=== PATIENT | female | born 1950 | race Caucasian/White ===

== ENCOUNTER → 2016-10-03 | Outpatient (CLI) | payer MEDICARE, OTHER ==
[~2016-10-03] MED LIST: BISO5TAB PO; FEXO180T84 PO; HYDR-3812 PO; METF500T4 PO; OXYC-197 PO; PRD20T PO; THYR15TA PO
--- NOTE | 2016-10-03 10:25 | Diagnostic Imaging Report ---
INDICATION: Lower respiratory infection. EXAMINATION: PA and lateral chest. FINDINGS: The heart size and pulmonary vascularity are normal. The lungs are clear. There are no effusions or pneumothoraces. IMPRESSION: Negative chest. Dictated by: Dictated on workstation # [id number]
== END ==
LOC: RAD 08:17
PROVIDERS: ATTEND Internal Medicine
DX: J20.9 Acute bronchitis, unspecified (principal)
CPT/HCPCS: 71020

== ENCOUNTER → 2018-06-19 | Outpatient (CLI) | payer MEDICARE, OTHER ==
[~2018-06-19] MED LIST changes: +ACHD5005 PO; -HYDR-3812 PO; +METF-397 PO; -METF500T4 PO; -OXYC-197 PO; +OXYC1TAB87 PO
--- NOTE | 2018-06-19 13:12 | Diagnostic Imaging Report ---
PROCEDURE: MRI lumbar spine. TECHNIQUE: Multiplanar, multisequence MRI of the lumbar spine was performed without contrast. INDICATION: Low back pain, bilateral hip and buttock pain. COMPARISON: No previous for direct comparison. FINDINGS: The lumbar body heights are maintained. The alignment is anatomic. The marrow signal intensity is unremarkable. The conus is unremarkable. The nerves of the cauda equina revealed a normal pattern of dispersal. No paravertebral mass, hemorrhage, or fluid collection. T12-L1: Leftward eccentric posterolateral broad-based disc protrusion indents the left ventral thecal sac with only mild canal stenosis but does result in a mild degree of left-sided neuroforaminal stenosis. The right-sided foramen and bilateral lateral recesses are widely patent. L1-L2: Osteophyte disc material is anterior greater than posterior. Disease is mildly asymmetric to the left but no foraminal, recess, or canal stenosis. L2-L3: Degenerative changes to the disc, endplates, and posterior elements result in no stenosis. L3-L4: There are disc desiccation, loss of disc stature, disc bulge, and endplate osteophytes. The findings result in [id number] right and mild left foraminal stenosis. There is thickening of the ligamenta flava and some prominence of the dorsal epidural fat which in conjunction with disc bulge result in a moderate degree of canal stenosis. L4-L5: There is buckled thickened ligamenta flava, hypertrophic facet arthrosis, disc bulge, and endplate osteophytes. The constellation of findings result in a severe degree of trefoil-configured stenosis of the thecal sac with mild degrees of biforaminal stenosis. There is at least mild left greater than right lateral recess stenosis below this disc space level. L5-S1: Disc bulge mildly asymmetric to the left mildly narrows the left neuroforamen and the spinal canal and showed no significant stenosis. There is left greater than right mild degrees of lateral recess stenosis. IMPRESSION: 1. Degenerative changes to the discs, endplates, and posterior elements result in multilevel stenoses involving spinal canal, neuroforamina, and lateral recesses, listed level by level above, most significantly at the L4-L5 level. 2. Normal alignment. No acute bony abnormality. Dictated by: Dictated on workstation # [id number]
== END ==
LOC: RAD 10:10
PROVIDERS: ATTEND Internal Medicine
DX: M51.17 Intervertebral disc disorders with radiculopathy, lumbosacral region (principal); M48.07 Spinal stenosis, lumbosacral region; M25.78 Osteophyte, vertebrae
CPT/HCPCS: 72148

== ENCOUNTER 2018-08-02 13:30 | Outpatient (RCR) | payer MEDICARE, OTHER | END 2018-08-02 14:08 | disposition home or self-care (01) | PROVIDERS: ATTEND Internal Medicine Rheumatology | DX: M54.16 Radiculopathy, lumbar region (principal) ==

== ENCOUNTER 2019-04-26 19:08 | Emergency (ER) | payer MEDICARE, OTHER ==
[~2019-04-26] VITALS: Ht 162.6 cm; Wt 71.2 kg
[2019-04-26] MEDS ORDERED: RT-ALBUTEROL SULF 2.5 MG/3 ML PRE-MIX VIAL INH STA (20:05)
--- NOTE | 2019-04-26 20:16 | ED General ---
General Chief Complaint: Cough/Cold/Flu Symptoms Stated Complaint: FLU LIKE SYMPTOMS Nursing Triage Note: PT AMBULATE TO TRIAGE WITH C/O FLU LIKE SYMPTOMS. PT C/O COUGH, FEELING RUN DOWN, AND INCREASED WORK OF BREATHING. SYMPTOMS STARTED APPROX 7 DAYS AGO. Nursing Sepsis Screen: No Definite Risk Source of Information: Patient Exam Limitations: No Limitations History of Present Illness Date Seen by Provider: Apr 26, 2019 Time Seen by Provider: 19:11 Initial Comments This 68-year-old woman presents to the emergency room with complaints of one week of flulike symptoms including cough, dyspnea, wheezing, congestion, and chills. She is afebrile at present. She denies nausea, vomiting, or urinary symptoms. She has mild lower back ache. She denies any history of respiratory problems. She has some autoimmune disorders but is not on immunosuppressive medications at this time. Allergies and Home Medications Allergies Coded Allergies: celecoxib (Unverified Allergy, Unknown, 01/24/16) Home Medications Albuterol Sulfate 1 Puff Puff, 2 PUFF IH Q4H PRN for WHEEZING 1 PUFF = 90 MCG Prescribed by: YADIRA TOLLIVER on 04/26/192099 Bisoprolol Fumarate 5 Mg Tablet, 2.5 MG PO DAILY, (Reported) Metformin HCl 500 Mg Tablet, 250 MG PO DAILY, (Reported) Oxycodone HCl/Acetaminophen 1 Each Tablet, 1-2 EACH PO Q6H PRN for PAIN Prescribed by: KAM WAGNER on 11/08/15 0256 Prednisone 20 Mg Tab, 60 MG PO DAILY, (Reported) Thyroid,Pork 15 Mg Tablet, 15 MG PO DAILY, (Reported) Patient Home Medication List Home Medication List Reviewed: Yes Review of Systems Review of Systems Constitutional: see HPI EENTM: see HPI, other (watery erythematous eyes) Respiratory: see HPI Cardiovascular: no symptoms reported Gastrointestinal: no symptoms reported Genitourinary: no symptoms reported : No Musculoskeletal: see HPI Skin: other (scalp psoriasis) Psychiatric/Neurological: No Symptoms Reported Hematologic/Lymphatic: No Symptoms Reported Past Hngiadh-Phwlnh-Glpouu Hx Patient Social History Alcohol Use: Occasionally Uses Recreational Drug Use: No Smoking Status: Never a Smoker 2nd Hand Smoke Exposure: No Recent Foreign Travel: No Contact w/Someone Who Travel: No Recent Infectious Disease Expo: No Recent Hopitalizations: Yes (BACK SURGERY AT [facility]) Physical Abuse: No Sexual Abuse: No Mistreated: No Fear: No Seasonal Allergies Seasonal Allergies: No Past Medical History Surgeries: Yes (BACK SURGERY) Respiratory: No Cardiac: Yes Hypertension Neurological: No : No Genitourinary: No Gastrointestinal: No Musculoskeletal: Yes (SPINAL STENOSIS) Endocrine: Yes Hypothyroidsim HEENT: No Cancer: No Psychosocial: No Integumentary: Yes Psoriasis Blood Disorders: No Physical Exam Vital Signs Vital Signs - First Documented 04/26/19 04/26/19 19:39 19:45 Temp 36.7 Pulse 76 Resp 19 B/P (MAP) 161/97 (118) O2 Delivery Room Air O2 Flow Rate 96.00 Capillary Refill : Less Than 3 Seconds Height, Weight, BMI Height: '" Weight: lbs. oz. kg; 26.00 BMI Method: General Appearance: No Apparent Distress, WD/WN Eyes: Bilateral Eye Other (mild conjunctival irritation with watery eyes) HEENT: PERRL/EOMI, TMs Normal, Normal ENT Inspection, Pharyngeal Erythema Neck: Normal Inspection Respiratory: No Accessory Muscle Use, No Respiratory Distress, Wheezing Cardiovascular: Regular Rate, Rhythm, No Edema, No Murmur Extremity: Normal Inspection, No Pedal Edema Neurologic/Psychiatric: Alert, Oriented x3, No Motor/Sensory Deficits, Normal Mood/Affect, legal stenographer II-XII Norm as Tested Skin: Normal Color, Warm/Dry Progress/Results/Core Measures Suspected Sepsis Recent Fever Within 48 Hours: No Infection Criteria Present: None New/Unexplained Altered Menta: No Sepsis Screen: No Definite Risk SIRS Temperature: Pulse: 76 Respiratory Rate: 19 Blood Pressure 161 /97 Mean: 118 Results/Orders Micro Results Microbiology 04/26/19 Influenza Types A,B Antigen (JAVIER) - Final, Complete My Orders Orders - YADIRA SMITH MD Influenza A And B Antigens (04/26/19 19:11) Chest Pa/Lat (2 View) (04/26/19 20:05) Albuterol Pre-Mix Nebs (Rt) (Proventil (04/26/19 20:05) Svn Small Volume Nebulizer (04/26/19 20:05) Vital Signs/I&O 04/26/19 04/26/19 19:39 19:45 Temp 36.7 Pulse 76 Resp 19 B/P (MAP) 161/97 (118) O2 Delivery Room Air Room Air O2 Flow Rate 96.00 Capillary Refill : Less Than 3 Seconds Blood Pressure Mean: 118 POS Progress Note : Progress Note Influenza screen and chest x-ray were negative. A trial of nebulized albuterol did not significantly improve her symptoms. There was perhaps mild improvement in wheezing on repeat examination. Patient has successfully used steroids in the past. She has prednisone at home she can use if her symptoms worsen. Albuterol inhaler was also prescribed to use if symptoms worsen. Return precautions were discussed. Diagnostic Imaging Diagonstic Imaging: Xray Plain Films/CT/US/NM/MRI: chest Comments Chest x-ray viewed by me and report reviewed. See report below: NAME: ANGIE CANDELARIO [facility] REC#: [id number] PT STATUS: REG ER : 1950 PHYSICIAN: YADIRA SMITH MD ADMIT DATE: 04/26/19/ER Signed Date of Exam:04/26/19 CHEST PA/LAT (2 VIEW) EXAMINATION: PA and lateral chest at 8:18 PM INDICATION: Cough The heart size is within normal limits and stable when compared to 10/03/2016. The minimal scar formation in the periphery of the right midlung seen previously is again evident and no different. The lungs are otherwise generally clear. There is no sign of failure, pneumonia or of a pleural effusion to indicate an acute abnormality. The mediastinum is not widened. The osseous structures are intact. IMPRESSION: There is no evidence for active disease. Dictated by: Dictated on workstation # [id number] Dict: 04/26/192022 Trans: 04/26/192044 [facility] [id number] Interpreted by: BELÉN GODDARD MD Electronically signed by: BELÉN GODDARD MD 04/26/192044 Departure Impression Primary Impression: Acute bronchitis Qualified Codes: J20.9 - Acute bronchitis, unspecified Additional Impression: Viral upper respiratory illness Disposition: HOME, SELF-CARE Condition: Improved Departure-Patient Inst. Decision time for Depature: 20:50 Referrals: EVELINE PITTS MD (PCP) Primary Care Physician Patient Instructions: Acute Bronchitis, Adult (DC) Add. Discharge Instructions: For aches and pains you may use Tylenol (acetaminophen) up to 1000 mg every 6 hours as needed. If you're wheezing and shortness of breath is problematic, you may fill the albuterol inhaler and use as directed. You may also use your prednisone 20 mg daily for 3 or 4 days. If you have worsening symptoms or develop new symptoms such as chest pain, escalating fever, etc., please return to care. All discharge instructions reviewed with patient and/or family. Voiced understanding. Scripts Albuterol Sulfate (PROAIR HFA) 1 Puff Puff 2 PUFF IH Q4H PRN for WHEEZING, #1 PUFF 1 PUFF = 90 MCG Prov: YADIRA SMITH MD 04/26/19 YADIRA SMITH MD Apr 26, 2019 20:15 POS
--- NOTE | 2019-04-26 20:32 | Diagnostic Imaging Report ---
EXAMINATION: PA and lateral chest at 8:18 PM INDICATION: Cough The heart size is within normal limits and stable when compared to 10/03/2016. The minimal scar formation in the periphery of the right midlung seen previously is again evident and no different. The lungs are otherwise generally clear. There is no sign of failure, pneumonia or of a pleural effusion to indicate an acute abnormality. The mediastinum is not widened. The osseous structures are intact. IMPRESSION: There is no evidence for active disease. Dictated by: Dictated on workstation # [id number]
[2019-04-26] MEDS ORDERED: RT-ALBUINH IH (21:00)
[2019-04-26 21:07] VITALS: BP 161/97
== END 2019-04-26 21:07 | disposition home or self-care (01) ==
LOC: EDUNIT# 19:08 → ER 19:09
DX: J20.9 Acute bronchitis, unspecified (principal); J39.8 Other specified diseases of upper respiratory tract; I10 Essential (primary) hypertension; E03.9 Hypothyroidism, unspecified; Z88.6 Allergy status to analgesic agent; Z79.84 Long term (current) use of oral hypoglycemic drugs
CPT/HCPCS: 71046; 87804

== ENCOUNTER → 2020-03-19 | Outpatient (CLI) | payer MEDICARE, OTHER ==
[~2020-03-19] MED LIST changes: -BISO5TAB PO; +NF-BISOP5 PO; +RT-ALBUINH IH
== END ==
LOC: LABNPT 05:32
PROVIDERS: ATTEND Internal Medicine
DX: Z11.59 Encounter for screening for other viral diseases (principal)
CPT/HCPCS: 87635

== ENCOUNTER 2020-10-15 10:29 | Outpatient (RCR) | payer MEDICARE, OTHER | END 2020-11-15 10:25 | disposition home or self-care (01) | PROVIDERS: ATTEND Neurological Surgery | DX: M25.551 Pain in right hip (principal) ==